=== PATIENT | female | born 1960 | race Caucasian/White ===

== ENCOUNTER 2016-11-23 10:30 | Emergency (ER) | payer OTHER ==
[~2016-11-23] VITALS: Ht 160 cm; Wt 103.2 kg
[~2016-11-23 10:30] MED LIST: ABILIFY10 MG PO; ATARAX10 MG; BACTRIM,SEPT1 TABLET PO; CIPRO500 MG PO; DARVOCET-N 1001 EACH PO; DESYREL 150 MG150 MG PO; DESYREL100 MG PO; DETROL LA2 MG; DICYCLOMINE HCL10 MG; GABAPENTIN100 MG; HYDROCODON-ACE1 EAC7 PO; INDOCIN50 MG PO; KEFLEX500 MG PO; LAMICTAL ODT50 MG PO; LAMICTAL150 MG; LAMOTRIGINE100 MG; MICONAZOLE 3200 MG VG; MOBIC7.5 MG; MOTRIN600 MG PO; NAPROXEN500 M2; NAPROXEN500 M2 PO; NEURONTIN300 MG PO; NOHOMEMEDS; NORCO 5/3251 TABLET PO; OMEPRAZOLE40 M1; OXYCODONE HCL5 MG PO; PROCHLORPERAZIN10 MG; PROPRANOLOL HC120 MG; PROVENTIL,200 INHALA; RESTORIL30 MG PO; ROBAXIN500 MG; SIMVASTATIN20 MG PO; SOMA250 MG PO; TIZANIDINE HCL4 MG; VALIUM5 MG PO; XANAX0.5 MG PO; ZANAFLEX4 MG PO; ZESTRIL20 MG PO; ZOLOFT100 MG PO
[2016-11-23 11:52] LABS: EOSINOPHIL (%) 0.6 % (0-5); HEMATOCRIT 38.4 % (36.0-46.0); IMMATURE GRANULOCYTE (%) 0.1 % (0.0-0.7); INSTRUMENT ABS NEUTROPHIL CT 3.2 K/uL; LYMPHOCYTE COUNT 2.9 K/uL (1.0-2.8); MCH 30.2 PG (29.0-34.0); MCHC 33.6 G/DL (30.0-36.0); MCV 89.9 FL (83-99); MEAN PLAT.VOLUME 10.7 uM^3 (9.5-12.4); MONOCYTE (%) 8.6 % (3-12); MONOCYTE COUNT 0.6 K/uL (0-0.8); NEUTROPHIL (%) 47.1 % (45-76); NEUTROPHIL COUNT 3.2 K/uL (1.8-6.4); PLATELET COUNT 228 K/uL (156-360); RBC DIS.WIDTH-CV 12.5 % (11.8-14.6); RBC DIS.WIDTH-SD 40.6 % (39-53); RED BLOOD COUNT 4.27 M/uL (3.80-5.20); WHITE BLOOD COUNT 6.7 K/uL (4.1-10.2)
[2016-11-23 11:59] LABS: CHLORIDE 107 mEq/L (99-109); POTASSIUM 4.3 mEq/L (3.7-5.4); SODIUM 140 mEq/L (136-147)
[2016-11-23 12:01] LABS: GLUCOSE 94 mg/dL (70-99)
[2016-11-23 12:02] LABS: ANION GAP 11 MEQ/L (2-14)
[2016-11-23 12:05] LABS: GFR ESTIMATE (CALCULATED) 49 mL/min/
[2016-11-23 12:06] LABS: UREA NITROGEN (BUN) 30 mg/dL (9-23)
[2016-11-23] MEDS ORDERED: ANTIVERT25 MG PO (13:25)
[2016-11-23 13:39] VITALS: BP 124/81
== END 2016-11-23 14:22 | disposition home or self-care (01) ==
LOC: EME 10:30
PROVIDERS: Emergency Medicine
DX: R42 Dizziness and giddiness (principal); R11.2 Nausea with vomiting, unspecified; I10 Essential (primary) hypertension; Z90.710 Acquired absence of both cervix and uterus
CPT/HCPCS: 70450; 80048; 85025; 93005; 99281; 99285; J2405

== ENCOUNTER 2017-02-03 16:23 | Emergency (ER) | payer OTHER ==
[~2017-02-03] VITALS: Ht 167.6 cm; Wt 89.4 kg
[~2017-02-03 16:23] MED LIST changes: +ANTIVERT25 MG PO
[2017-02-03 18:01] LABS: EOSINOPHIL (%) 0.5 % (0-5); HEMATOCRIT 37.7 % (36.0-46.0); IMMATURE GRANULOCYTE (%) 0.4 % (0.0-0.7); INSTRUMENT ABS NEUTROPHIL CT 4.9 K/uL; LYMPHOCYTE COUNT 2.4 K/uL (1.0-2.8); MCV 91.3 FL (83-99); MEAN PLAT.VOLUME 9.9 uM^3 (9.5-12.4); MONOCYTE (%) 7.7 % (3-12); MONOCYTE COUNT 0.6 K/uL (0-0.8); NEUTROPHIL (%) 60.8 % (45-76); NEUTROPHIL COUNT 4.9 K/uL (1.8-6.4); PLATELET COUNT 237 K/uL (156-360); RBC DIS.WIDTH-CV 12.7 % (11.8-14.6); RBC DIS.WIDTH-SD 42.5 % (39-53); RED BLOOD COUNT 4.13 M/uL (3.80-5.20)
[2017-02-03 18:10] LABS: CHLORIDE 107 mEq/L (99-109); POTASSIUM 3.9 mEq/L (3.7-5.4); SODIUM 138 mEq/L (136-147)
[2017-02-03 18:12] LABS: GLUCOSE 91 mg/dL (70-99)
[2017-02-03 18:14] LABS: ANION GAP 9 MEQ/L (2-14); TOTAL BILIRUBIN 0.4 mg/dL (0.0-1.0)
[2017-02-03 18:16] LABS: ALKALINE PHOSPHATASE 84 IU/L (3-129); GFR ESTIMATE (CALCULATED) > 59 mL/min/
[2017-02-03 18:17] LABS: UREA NITROGEN (BUN) 23 mg/dL (9-23)
[2017-02-03 18:18] LABS: TROP-I INTERPRETATION NEGATIVE; TROPONIN-I < 0.01 ng/mL (0.0-0.30)
[2017-02-03 21:07] LABS: TROP-I INTERPRETATION NEGATIVE; TROPONIN-I < 0.01 ng/mL (0.0-0.30)
[2017-02-03 21:43] VITALS: BP 118/77
== END 2017-02-03 21:43 | disposition home or self-care (01) ==
LOC: EME 16:23
PROVIDERS: Emergency Medicine
DX: R20.0 Anesthesia of skin (principal); R20.2 Paresthesia of skin; R07.89 Other chest pain; J45.909 Unspecified asthma, uncomplicated; E78.5 Hyperlipidemia, unspecified
CPT/HCPCS: 70450; 71010; 72125; 80053; 84484; 85025; 93005; 99281; 99284

== ENCOUNTER 2017-05-01 08:09 | Emergency (ER) | payer OTHER ==
[~2017-05-01] VITALS: Ht 157.5 cm; Wt 77.2 kg
[2017-05-01] MEDS ORDERED: ZOFRAN4 MG PO (09:33)
[2017-05-01 09:56] VITALS: BP 121/80
== END 2017-05-01 09:56 | disposition home or self-care (01) ==
LOC: EME 08:09
DX: S09.90XA Unspecified injury of head, initial encounter (principal); W22.09XA Striking against other stationary object, initial encounter; J45.909 Unspecified asthma, uncomplicated; I10 Essential (primary) hypertension; E78.5 Hyperlipidemia, unspecified; F41.9 Anxiety disorder, unspecified; F32.9 Major depressive disorder, single episode, unspecified; Z88.8 Allergy status to other drugs, medicaments and biological substances
CPT/HCPCS: 70450; 99281; 99283

== ENCOUNTER 2017-05-30 13:21 | Emergency (ER) | payer OTHER ==
[~2017-05-30] VITALS: Ht 157.5 cm; Wt 77.4 kg
[~2017-05-30 13:21] MED LIST changes: +ZOFRAN4 MG PO
[2017-05-30 13:55] LABS: APPEARANCE SL.HAZY ((CLEAR)); BILIRUBIN NEGATIVE; BLOOD NEGATIVE; GLUCOSE (STRIP) NEGATIVE; KETONES NEGATIVE; LEUKOCYTES MODERATE; NITRITE NEGATIVE; PROTEIN (STRIP) 30; SPECIFIC GRAVITY 1.021 (1.000-1.030)
[2017-05-30 13:56] LABS: COLOR YELLOW ((YELLOW))
[2017-05-30 14:01] LABS: BACTERIA RARE /HPF; EPITHELIAL CELLS 2+ /HPF; MUCUS TRACE /LPF; RED BLOOD CELLS 0-5 /HPF (0-5); TRIPLE PHOSPHATE CRYSTALS 1+ /HPF; UCUL ADDED? NO; WHITE BLOOD CELLS 0-5 /HPF (0-5)
[2017-05-30 14:40] LABS: HEMATOCRIT 36.3 % (36.0-46.0); HEMOGLOBIN 12.3 G/DL (11.9-15.5); MCH 31.2 PG (29.0-34.0); MCHC 33.9 G/DL (30.0-36.0); MCV 92.1 FL (83-99); PLATELET COUNT 201 K/uL (156-360); RBC DIS.WIDTH-CV 12.3 % (11.8-14.6); RBC DIS.WIDTH-SD 41.9 % (39-53); RED BLOOD COUNT 3.94 M/uL (3.80-5.20); WHITE BLOOD COUNT 6.8 K/uL (4.1-10.2)
[2017-05-30 14:53] LABS: ALBUMIN 3.9 g/dL (3.2-4.8)
[2017-05-30 14:54] LABS: CHLORIDE 110 mEq/L (99-109); POTASSIUM 3.5 mEq/L (3.7-5.4); SODIUM 140 mEq/L (136-147)
[2017-05-30 14:56] LABS: GLUCOSE 97 mg/dL (70-99); TOTAL PROTEIN 6.4 g/dL (6.4-8.3)
[2017-05-30 14:58] LABS: TOTAL BILIRUBIN 0.5 mg/dL (0.0-1.0)
[2017-05-30 14:59] LABS: ALKALINE PHOSPHATASE 85 IU/L (3-129)
[2017-05-30 15:00] LABS: CREATININE 0.8 mg/dL (0.6-1.3); GFR ESTIMATE (CALCULATED) > 59 mL/min/
[2017-05-30 15:01] LABS: AST (GOT) 21 IU/L (2-34); UREA NITROGEN (BUN) 16 mg/dL (9-23)
[2017-05-30 15:03] LABS: ALT (GPT) 16 IU/L (3-49)
[2017-05-30 15:30] LABS: TROP-I INTERPRETATION NEGATIVE; TROPONIN-I < 0.01 ng/mL (0.0-0.30)
[2017-05-30] MEDS ORDERED: BENTYL20 MG PO (17:53)
[2017-05-30] MEDS ORDERED: ZOFRAN ODT4 MG PO (17:53)
[2017-05-30 17:59] LABS: TROP-I INTERPRETATION NEGATIVE; TROPONIN-I < 0.01 ng/mL (0.0-0.30)
[2017-05-30 18:18] VITALS: BP 144/70
== END 2017-05-30 18:18 | disposition home or self-care (01) ==
LOC: EME 13:21
PROVIDERS: Nurse Practitioner Family
DX: R10.13 Epigastric pain (principal); R11.2 Nausea with vomiting, unspecified; R19.7 Diarrhea, unspecified; R06.02 Shortness of breath; J45.909 Unspecified asthma, uncomplicated; E78.5 Hyperlipidemia, unspecified; I10 Essential (primary) hypertension; F32.9 Major depressive disorder, single episode, unspecified; F41.9 Anxiety disorder, unspecified; B19.20 Unspecified viral hepatitis C without hepatic coma; Z88.5 Allergy status to narcotic agent; Z88.8 Allergy status to other drugs, medicaments and biological substances
CPT/HCPCS: 71046; 80053; 81003; 84484; 85027; 93005; 99281; 99284

== ENCOUNTER 2017-08-23 11:37 | Emergency (ER) | payer OTHER ==
[~2017-08-23] VITALS: Ht 157.5 cm; Wt 75.6 kg
[~2017-08-23 11:37] MED LIST changes: +BENTYL20 MG PO; +ZOFRAN ODT4 MG PO
[2017-08-23 12:13] LABS: HEMATOCRIT 37.3 % (36.0-46.0); HEMOGLOBIN 12.6 G/DL (11.9-15.5); MCH 31.7 PG (29.0-34.0); MCHC 33.8 G/DL (30.0-36.0); PLATELET COUNT 249 K/uL (156-360); RBC DIS.WIDTH-CV 13.1 % (11.8-14.6); RBC DIS.WIDTH-SD 45.1 % (39-53); RED BLOOD COUNT 3.97 M/uL (3.80-5.20); WHITE BLOOD COUNT 7.2 K/uL (4.1-10.2)
[2017-08-23 12:25] LABS: CHLORIDE 109 mEq/L (99-109); POTASSIUM 4.2 mEq/L (3.7-5.4); SODIUM 138 mEq/L (136-147)
[2017-08-23 12:26] LABS: GLUCOSE 92 mg/dL (70-99)
[2017-08-23 12:30] LABS: CREATININE 0.8 mg/dL (0.6-1.3); GFR ESTIMATE (CALCULATED) > 59 mL/min/
[2017-08-23 12:31] LABS: UREA NITROGEN (BUN) 20 mg/dL (9-23)
[2017-08-23 15:00] LABS: D-DIMER ELISA < 150.00 ng/mLDDU (<230)
[2017-08-23] MEDS ORDERED: PREDNISONE20 MG PO (15:01)
[2017-08-23] MEDS ORDERED: ATARAX,VISTARIL50 MG PO (15:44)
[2017-08-23 16:15] VITALS: BP 137/100
== END 2017-08-23 16:15 | disposition home or self-care (01) ==
LOC: EME 11:37
PROVIDERS: Physician Assistant
DX: J45.901 Unspecified asthma with (acute) exacerbation (principal); I10 Essential (primary) hypertension; E78.5 Hyperlipidemia, unspecified; F41.9 Anxiety disorder, unspecified; F32.9 Major depressive disorder, single episode, unspecified; M19.90 Unspecified osteoarthritis, unspecified site; Z88.5 Allergy status to narcotic agent; Z88.8 Allergy status to other drugs, medicaments and biological substances
CPT/HCPCS: 71046; 80048; 85027; 85379; 99281; 99284; J1100

== ENCOUNTER 2017-08-30 13:04 | Emergency (ER) | payer OTHER ==
[~2017-08-30] VITALS: Ht 157.5 cm; Wt 71.8 kg
[~2017-08-30 13:04] MED LIST changes: +ATARAX,VISTARIL50 MG PO; +PREDNISONE20 MG PO
[2017-08-30 13:08] VITALS: BP 138/75
[2017-08-30 13:50] LABS: HEMATOCRIT 35.9 % (36.0-46.0); HEMOGLOBIN 12.2 G/DL (11.9-15.5); MCH 31.9 PG (29.0-34.0); PLATELET COUNT 202 K/uL (156-360); RBC DIS.WIDTH-CV 13.3 % (11.8-14.6); RBC DIS.WIDTH-SD 45.8 % (39-53); RED BLOOD COUNT 3.82 M/uL (3.80-5.20); WHITE BLOOD COUNT 9.3 K/uL (4.1-10.2)
[2017-08-30 13:58] LABS: CHLORIDE 112 mEq/L (99-109); POTASSIUM 4.6 mEq/L (3.7-5.4); SODIUM 144 mEq/L (136-147)
[2017-08-30 13:59] LABS: D-DIMER ELISA < 150.00 ng/mLDDU (<230)
[2017-08-30 14:00] LABS: GLUCOSE 99 mg/dL (70-99)
[2017-08-30 14:04] LABS: CREATININE 1.3 mg/dL (0.6-1.3); GFR ESTIMATE (CALCULATED) 45 mL/min/
[2017-08-30 14:05] LABS: UREA NITROGEN (BUN) 25 mg/dL (9-23)
== END 2017-08-30 15:31 | disposition left against medical advice (07) ==
LOC: EME 13:04
PROVIDERS: Physician Assistant
DX: R06.02 Shortness of breath (principal); Z53.20 Procedure and treatment not carried out because of patient's decision for unspecified reasons; J45.909 Unspecified asthma, uncomplicated; F32.9 Major depressive disorder, single episode, unspecified; E78.5 Hyperlipidemia, unspecified; I10 Essential (primary) hypertension; F41.9 Anxiety disorder, unspecified; Z88.8 Allergy status to other drugs, medicaments and biological substances; M19.90 Unspecified osteoarthritis, unspecified site
CPT/HCPCS: 80048; 85027; 85379; 99281; 99283

== ENCOUNTER → 2017-10-29 | Outpatient (CLI) | payer OTHER | END | disposition home or self-care (01) | LOC: RES 12:16 | DX: R06.02 Shortness of breath (principal) | CPT/HCPCS: 94010 ==

== ENCOUNTER 2017-12-07 20:27 | Observation (INO) | payer OTHER ==
[~2017-12-07] VITALS: Ht 157.5 cm; Wt 72.1 kg
[2017-12-07 21:11] LABS: HEMATOCRIT 36.4 % (36.0-46.0); HEMOGLOBIN 12.5 G/DL (11.9-15.5); MCH 31.6 PG (29.0-34.0); MCHC 34.3 G/DL (30.0-36.0); MCV 91.9 FL (83-99); PLATELET COUNT 229 K/uL (156-360); RBC DIS.WIDTH-CV 12.2 % (11.8-14.6); RBC DIS.WIDTH-SD 40.7 % (39-53); RED BLOOD COUNT 3.96 M/uL (3.80-5.20); WHITE BLOOD COUNT 7.2 K/uL (4.1-10.2)
[2017-12-07 21:21] LABS: ALBUMIN 4.2 g/dL (3.2-4.8); CHLORIDE 108 mEq/L (99-109); POTASSIUM 3.6 mEq/L (3.7-5.4); SODIUM 140 mEq/L (136-147)
[2017-12-07 21:24] LABS: GLUCOSE 85 mg/dL (70-99); TOTAL PROTEIN 7.2 g/dL (6.4-8.3)
[2017-12-07 21:26] LABS: TOTAL BILIRUBIN 0.3 mg/dL (0.0-1.0)
[2017-12-07 21:27] LABS: ALKALINE PHOSPHATASE 88 IU/L (3-129); CREATININE 0.9 mg/dL (0.6-1.3); GFR ESTIMATE (CALCULATED) > 59 mL/min/
[2017-12-07 21:28] LABS: UREA NITROGEN (BUN) 26 mg/dL (9-23)
[2017-12-07 21:29] LABS: AST (GOT) 28 IU/L (2-34)
[2017-12-07 21:30] LABS: ALT (GPT) 20 IU/L (3-49)
[2017-12-07 21:33] LABS: APPEARANCE CLEAR ((CLEAR)); BILIRUBIN NEGATIVE; BLOOD NEGATIVE; COLOR STRAW ((YELLOW)); GLUCOSE (STRIP) NEGATIVE; KETONES NEGATIVE; LEUKOCYTES SMALL; NITRITE NEGATIVE; PROTEIN (STRIP) NEGATIVE; SPECIFIC GRAVITY 1.013 (1.000-1.030); UROBILINOGEN 0.2 MG/DL (0.2-1.0)
[2017-12-07 21:42] LABS: SERUM ETHYL ALCOHOL < 10 mg/dL
[2017-12-07 21:45] LABS: BACTERIA RARE /HPF; EPITHELIAL CELLS RARE /HPF; MUCUS TRACE /LPF; RED BLOOD CELLS 0-5 /HPF (0-5); UCUL ADDED? NO; WHITE BLOOD CELLS 0-5 /HPF (0-5)
[2017-12-07 21:45] LABS: LIPASE 48 U/L (1.0-51.0)
[2017-12-08] MEDS ORDERED: ZOFRAN ODT8 MG PO (00:13)
[2017-12-08] MEDS ORDERED: BENTYL20 MG PO (00:13)
[2017-12-08] MEDS ORDERED: TOPIRAMATE100 MG PO (01:39)
[2017-12-08] MEDS ORDERED: PULMICORT FLE180 MCG IH (01:56)
[2017-12-08] MEDS ORDERED: ESCITALOPRAM OX10 MG PO (01:59)
[2017-12-08] MEDS ORDERED: BUSPAR30 MG PO (01:59)
[2017-12-08] MEDS ORDERED: SERTRALINE HCL100 MG PO (02:00)
[2017-12-08] MEDS ORDERED: CELECOXIB200 MG PO (02:00)
[2017-12-08] MEDS ORDERED: ROSUVASTATIN CA20 MG PO (02:00)
[2017-12-08] MEDS ORDERED: TEMAZEPAM30 MG PO (02:01)
[2017-12-08] MEDS ORDERED: TIZANIDINE HCL4 MG PO (02:02)
[2017-12-08] MEDS ORDERED: OMEPRAZOLE20 MG PO (02:03)
[2017-12-08] MEDS ORDERED: MONTELUKAST SOD10 MG PO (02:04)
[2017-12-08] MEDS ORDERED: CARBAMAZEPINE300 MG PO (02:06)
[2017-12-08] MEDS ORDERED: CARBATROL-ER300 MG PO (02:07)
[2017-12-08] MEDS ORDERED: GABAPENTIN300 MG PO (02:10)
[2017-12-08] MEDS ORDERED: NEURONTIN300 MG PO (02:11)
[2017-12-08] MEDS ORDERED: VESICARE5 MG PO (02:14)
[2017-12-08] MEDS ORDERED: MYRBETRIQ25 MG PO (02:14)
[2017-12-08] MEDS ORDERED: XOPENEX HF200 INHALA IH (02:15)
[2017-12-08 02:47] VITALS: BP 149/94
[2017-12-08 06:36] LABS: HEMATOCRIT 35.1 % (36.0-46.0); HEMOGLOBIN 11.4 G/DL (11.9-15.5); MCH 30.9 PG (29.0-34.0); MCHC 32.5 G/DL (30.0-36.0); MCV 95.1 FL (83-99); PLATELET COUNT 178 K/uL (156-360); RBC DIS.WIDTH-CV 12.2 % (11.8-14.6); RBC DIS.WIDTH-SD 42.7 % (39-53); RED BLOOD COUNT 3.69 M/uL (3.80-5.20); WHITE BLOOD COUNT 5.3 K/uL (4.1-10.2)
[2017-12-08 07:01] LABS: ALBUMIN 3.4 G/DL (3.2-4.8); ALKALINE PHOSPHATASE 69 IU/L (3-129); ALT (GPT) 12 IU/L (3-49); AST (GOT) 18 IU/L (2-34); CHLORIDE 110 MEQ/L (99-109); CREATININE 0.8 MG/DL (0.6-1.3); GFR ESTIMATE (CALCULATED) > 59 mL/min/; GLUCOSE 82 mg/dL (70-99); POTASSIUM 4.2 MEQ/L (3.7-5.4); SODIUM 140 MEQ/L (136-147); TOTAL BILIRUBIN 0.4 MG/DL (0.0-1.0); TOTAL PROTEIN 5.6 G/DL (6.4-8.3); UREA NITROGEN (BUN) 22 mg/dL (9-23)
[2017-12-08 08:38] VITALS: BP 167/78
[2017-12-08 11:03] VITALS: BP 133/72
== END 2017-12-08 19:55 | disposition left against medical advice (07) ==
LOC: EME 20:27 → EDOF 12-08 01:37 → 4SOUTH 12-08 01:37 → EDOF 12-08 01:37 → ENRESERV 12-08 01:38 → 4SOUTH 12-08 02:33
PROVIDERS: Internal Medicine
PROC: 0DB68ZX Excision of Stomach, Via Natural or Artificial Opening Endoscopic, Diagnostic (ICD-10-PCS; principal; 2017-12-08)
DX: K25.7 Chronic gastric ulcer without hemorrhage or perforation (principal); K44.9 Diaphragmatic hernia without obstruction or gangrene; K29.70 Gastritis, unspecified, without bleeding; K21.9 Gastro-esophageal reflux disease without esophagitis; R10.13 Epigastric pain; E87.6 Hypokalemia; I10 Essential (primary) hypertension; F31.9 Bipolar disorder, unspecified; J45.909 Unspecified asthma, uncomplicated; M19.90 Unspecified osteoarthritis, unspecified site; F41.9 Anxiety disorder, unspecified; K80.20 Calculus of gallbladder without cholecystitis without obstruction; K59.00 Constipation, unspecified; K57.90 Diverticulosis of intestine, part unspecified, without perforation or abscess without bleeding; E78.5 Hyperlipidemia, unspecified; K92.0 Hematemesis; Z91.5 Personal history of self-harm; Z86.19 Personal history of other infectious and parasitic diseases; Z90.710 Acquired absence of both cervix and uterus; Z82.49 Family history of ischemic heart disease and other diseases of the circulatory system; E66.01 Morbid (severe) obesity due to excess calories; Z88.5 Allergy status to narcotic agent
CPT/HCPCS: 74177; 76705; 80053; 80156; 81003; 83690; 85027; 88304; 88342 TC; 94640; 94799; 99281; 99285; C9113; G0378; G0480; J1200; J1885; J2060; J2250; J2405; J2765; J3010; J3480; J7030; S0028

== ENCOUNTER 2017-12-27 19:07 | Emergency (ER) | payer OTHER ==
[~2017-12-27] VITALS: Ht 157.5 cm; Wt 72.7 kg
[~2017-12-27 19:07] MED LIST changes: -PERCOCET 5/31 TABLET PO; -PHENERGAN25 MG PR
[2017-12-27 19:43] LABS: HEMATOCRIT 35.3 % (36.0-46.0); HEMOGLOBIN 11.9 G/DL (11.9-15.5); MCH 31.1 PG (29.0-34.0); MCHC 33.7 G/DL (30.0-36.0); MCV 92.2 FL (83-99); RBC DIS.WIDTH-CV 12.4 % (11.8-14.6); RBC DIS.WIDTH-SD 42.3 % (39-53); RED BLOOD COUNT 3.83 M/uL (3.80-5.20); WHITE BLOOD COUNT 12.9 K/uL (4.1-10.2)
[2017-12-27 19:52] LABS: ALBUMIN 4.1 g/dL (3.2-4.8); CHLORIDE 105 mEq/L (99-109); SODIUM 138 mEq/L (136-147)
[2017-12-27 19:54] LABS: GLUCOSE 107 mg/dL (70-99); TOTAL PROTEIN 7.6 g/dL (6.4-8.3)
[2017-12-27 19:56] LABS: TOTAL BILIRUBIN 0.5 mg/dL (0.0-1.0)
[2017-12-27 19:58] LABS: ALKALINE PHOSPHATASE 83 IU/L (3-129); CREATININE 0.9 mg/dL (0.6-1.3); GFR ESTIMATE (CALCULATED) > 59 mL/min/
[2017-12-27 19:59] LABS: APPEARANCE SL.HAZY ((CLEAR)); BILIRUBIN NEGATIVE; BLOOD SMALL; COLOR YELLOW ((YELLOW)); GLUCOSE (STRIP) NEGATIVE; KETONES NEGATIVE; LEUKOCYTES LARGE; NITRITE NEGATIVE; PROTEIN (STRIP) 30; SPECIFIC GRAVITY 1.018 (1.000-1.030); UROBILINOGEN 0.2 MG/DL (0.2-1.0)
[2017-12-27 20:00] LABS: AST (GOT) 21 IU/L (2-34)
[2017-12-27 20:01] LABS: ALT (GPT) 16 IU/L (3-49); LIPASE 17 U/L (1.0-51.0)
[2017-12-27 20:14] LABS: PLATELET COUNT 249 K/uL (156-360)
[2017-12-27 20:30] LABS: BACTERIA RARE /HPF; EPITHELIAL CELLS 1+ /HPF; MUCUS TRACE /LPF; UCUL ADDED? YES; WHITE BLOOD CELLS 30-40 /HPF (0-5)
[2017-12-27 20:41] LABS: UREA NITROGEN (BUN) 20 mg/dL (9-23)
[2017-12-27] MEDS ORDERED: PHENERGAN25 MG PR (21:39)
[2017-12-27] MEDS ORDERED: PERCOCET 5/31 TABLET PO (21:39)
[2017-12-27 23:30] VITALS: BP 132/76
== END 2017-12-27 23:30 | disposition home or self-care (01) ==
LOC: EME 19:07
DX: K80.20 Calculus of gallbladder without cholecystitis without obstruction (principal); I10 Essential (primary) hypertension; E78.5 Hyperlipidemia, unspecified; J45.909 Unspecified asthma, uncomplicated; G43.909 Migraine, unspecified, not intractable, without status migrainosus; M19.90 Unspecified osteoarthritis, unspecified site; F41.9 Anxiety disorder, unspecified; F32.9 Major depressive disorder, single episode, unspecified; Z86.19 Personal history of other infectious and parasitic diseases; Z88.6 Allergy status to analgesic agent; Z88.8 Allergy status to other drugs, medicaments and biological substances
CPT/HCPCS: 74176; 80053; 81003; 83690; 85027; 87086 GA; 99281; 99285; J0696; J1630; J1885; J2270; J2405; J2765; J7030

== ENCOUNTER → 2017-12-27 | Outpatient (CLI) | payer OTHER ==
[~2017-12-27] MED LIST changes: +BUSPAR30 MG PO; +CARBAMAZEPINE300 MG PO; +CARBATROL-ER300 MG PO; +CELECOXIB200 MG PO; +ESCITALOPRAM OX10 MG PO; +GABAPENTIN300 MG PO; +MONTELUKAST SOD10 MG PO; +MYRBETRIQ25 MG PO; +OMEPRAZOLE20 MG PO; +PERCOCET 5/31 TABLET PO; +PHENERGAN25 MG PR; +PULMICORT FLE180 MCG IH; +ROSUVASTATIN CA20 MG PO; +SERTRALINE HCL100 MG PO; +TEMAZEPAM30 MG PO; +TIZANIDINE HCL4 MG PO; +TOPIRAMATE100 MG PO; +VESICARE5 MG PO; +XOPENEX HF200 INHALA IH; +ZOFRAN ODT8 MG PO
== END | disposition home or self-care (01) ==
LOC: NUC 10:25
DX: K31.84 Gastroparesis (principal); R11.2 Nausea with vomiting, unspecified
CPT/HCPCS: 78226; A9537